=== PATIENT | male | born 1945 | race Caucasian/White ===

== ENCOUNTER 2016-10-17 16:11 | Emergency (ER) | payer MEDICARE, OTHER ==
[~2016-10-17] VITALS: Ht 172.7 cm; Wt 81.8 kg
[~2016-10-17 16:11] MED LIST: AMLO5TAB2 PO; ASPI-973 PO; ATOR40TA69 PO; CARV12.5 PO; CLOP75TA3 PO; GLUC500C11 PO; HYDR-3090 PO; ISOS60TA2 PO; LISI1TAB7 PO; NITR0.4T SL; NPH,100V10 SUBQ
[2016-10-17 16:37] VITALS: BP 191/92; PULSE 80; RESP 22; O2SAT 95
[2016-10-17] MEDS ORDERED: 0.9% Sodium Chloride 1,000 ML IV ONE (17:42)
[2016-10-17] MEDS ORDERED: Ondansetron 2 mg/mL 2 mL Inj IVPUSH ONE (17:45)
--- NOTE | 2016-10-17 17:49 | ED.REPORT ---
HPI-Back Pain 40 and Over Date of Service Oct 17, 2016 ED Provider: Jefe Sanchez PA-C Osorio is a 71-year-old male with chief complaint of right flank pain. He states that he first noticed it approximately 4 days ago, when he thought it was "normal" low back pain. His been worsening since then. He now complains of nausea and vomiting as well as urinary symptoms including frequency, urgency , dribbling and an episode of incontinence. 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 He admits to episodes of night sweats. Denies numbness, tingling, weakness or pain in lower extremity. Denies fever, DM , HIV, organ transplant, immunosuppression, history of back surgery, surgical implants and IV drug use. Denies bowel/bladder dysfunction and saddle anesthesia. Denies bowel changes, hematuria, history of kidney stones. Nursing Notes Stated Complaint: BACK PAIN Chief Complaint: Back Pain or Injury Nursing Notes Reviewed: Yes Allergies: Coded Allergies: No Known Allergies (Verified , 10/29/15) Scheduled Amlodipine (Amlodipine) 5 Mg Tablet 5 MG PO DAILY Aspirin (Aspirin) 81 Mg Tablet 81 MG PO BID Atorvastatin Calcium (Atorvastatin Calcium) 40 Mg Tablet 40 MG PO DAILY Carvedilol (Coreg) 12.5 Mg Tablet 12.5 MG PO BID Cephalexin (Keflex) 500 Mg Capsule 500 MG PO QID Clopidogrel Bisulfate (Plavix) 75 Mg Tablet 75 MG PO DAILY Glucosamine Sulfate 2Kcl (Glucosamine Sulfate) 500 Mg Capsule 2 CAPSULE PO DAILY Isosorbide MN ER (Isosorbide MN ER) 60 Mg Tab.er.24h 60 MG PO DAILY Lisinopril / HCTZ 10-12.5 mg (Lisinopril / HCTZ 10-12.5 mg) 1 Each Tablet 1 EACH PO DAILY NPH, Human Insulin Isophane (Novolin-N U100 Insulin Vial) 100 Unit/1 Ml Vial 25 UNIT SUBQ BID Scheduled PRN Hydrocodone-Acetaminophen 5-300 mg (Hydrocodone-Acetaminophen 5-300 mg) 1 Each Tablet 1 TABLET PO TID PRN PRN For Pain Nitroglycerin SL (Nitrostat) 0.4 Mg Tab.subl 0.4 MG SL Q5MIN PRN PRN ANGINA oxyCODONE (oxyCODONE) 5 Mg Tablet 5-10 MG PO Q4H PRN PRN For Pain General Time Seen by MD: 17:28 Chief Complaint Flank pain right Sudden in Onset?: No Past Medical History Smoking History Former Smoker Review of Systems Review of Systems Note: Negative other than listed otherwise in history of present illness Physical Exam General: Well appearing, well developed, well nourished, no acute distress. Head: Atraumatic, normocephalic. Eyes: No scleral icterus or injection. No discharge. Vision grossly intact. ENT: Voice clear, hearing grossly intact. Respiratory: Regular rate and rhythm. Breath sounds present, clear to auscultation and equal bilaterally. No respiratory distress. No increased work of breathing, speaks in complete sentences. Cardiovascular: Regular rate and rhythm, without murmur, gallop or rub. No pedal edema. Gastrointestinal: Abdomen flat and non-tender without guarding or rebound. Bowel sounds normoactive. Back: Normal to inspection, mild to moderate right CVA tenderness to percussion Skin: Warm and dry. Neurological: Normal gait and otherwise grossly nonfocal Psychological: Alert and oriented. Speech appropriate, linear and logical. Behavior appropriate. Initial Vital Signs Vital Signs (First) Date Time Temp Pulse Resp B/P Pulse Ox O2 Delivery O2 Flow Rate FiO2 10/17/16 16:37 80 22 191/92 95 Room Air 10/17/16 21:34 36.7 Initial VS: Reviewed, Vital signs normal Interpretation & Diagnostics Interpretation & Diagnostics: PROCEDURE: CT KUB ([id number]) INDICATIONS: 71-year-old male with right flank pain. IMPRESSION: 1. No imaging explanation for right flank pain. 2. 3.4 cm infrarenal abdominal aortic aneurysm has slightly enlarged since 2005. 3. Small fat containing periumbilical ventral hernia as before. ADDENDUM: When compared with contrast-enhanced images from June 2006, the interval increased extent of intraluminal calcifications within the abdominal aortic aneurysm closely matches the contours of pre-existing extensive peripheral mural thrombus. As such, the intraluminal curvilinear calcifications are felt to most likely reflect chronicity of mural thrombus, rather than acute dissection. No retroperitoneal fat stranding or other abnormalities are present to suggest rupture of abdominal aortic aneurysm. Lab Results Interpretation Result Diagram: 10/17/16 1810 10/17/16 1900 Test 10/17/16 17:14 10/17/16 18:10 10/17/16 19:00 Urine Color Yellow (YELLOW) Urine Appearance Clear (CLEAR,HAZY) Urine pH 6.5 (5.0-8.0) Urine Specific [place] 1.030 (1.003-1.035) Urine Protein 300mg/dL (NEG,TRACE) Urine Glucose (UA) Negativemg/dL (NEGATIVE) Urine Ketones 15mg/dL (NEGATIVE) Urine Occult Blood Small (NEGATIVE) Urine Nitrite Negative (NEGATIVE) Urine Bilirubin Negative (NEGATIVE) Urine Urobilinogen 1.0mg/dL (NORMAL) Urine Leukocyte Esterase Negative (NEGATIVE) Urine RBC 0-2/hpf (0-2) Urine WBC 0-5/hpf (0-5) Urine Epithelial Cells None/hpf (NONE-MOD) Urine Crystals None seen (NONE SEEN) Urine Bacteria Few/hpf (NONE-FEW) Urine Hyaline Casts None/lpf (NONE) Urine Granular Casts None seen (NONE SEEN) Urine Waxy Casts None seen (NONE SEEN) Urine Red Blood Cell Casts None seen (NONE SEEN) Urine White Blood Cell Casts None seen (NONE SEEN) Urine Mucus Present (None Seen) Urine Trichomonas None seen (NONE SEEN) Urine Yeast None (NONE SEEN) Urinalysis Comment None Urine Culture Reflexed Not indicated Hold Urine Received (Received) White Blood Count 9.1th/mm3 (3.8-10.1) Red Blood Count 5.34mil/mm3 (4.40-5.80) Hemoglobin 15.2g/dL (13.8-17.2) Hematocrit 44.4% (41.0-50.0) Mean Corpuscular Volume 83.1fL (81-100) Mean Corpuscular Hemoglobin 28.5pg (27.0-35.0) Mean Corpuscular Hemoglobin Concent 34.2% (32.0-37.0) Red Cell Distribution Width 13.7% (12.3-15.4) Platelet Count 231bil/L (150-400) Neutrophils (%) (Auto) 73.1% (40-74) Lymphocytes (%) (Auto) 17.6% (14-46) Monocytes (%) (Auto) 8.2% (4-12) Eosinophils (%) (Auto) 0.8% (0-5) Basophils (%) (Auto) 0.2% (0-3) Sodium Level 137mEq/L (134-144) Potassium Level 4.1mEq/L (3.5-5.2) Chloride Level 98mEq/L (97-108) Carbon Dioxide Level 21mmol/L (18-29) Blood Urea Nitrogen 17mg/dL (8-27) Creatinine 0.90mg/dL (0.76-1.27) Estimat Glomerular Filtration Rate 89mL/min (>59) Glucose Level 167mg/dL (60-99) Calcium Level 9.4mg/dL (8.5-10.1) Total Bilirubin 0.4mg/dL (0.0-1.2) Aspartate Amino Transf (AST/SGOT) 10U/L (0-50) Alanine Aminotransferase (ALT/SGPT) 9U/L (0-44) Alkaline Phosphatase 119U/L (25-160) Total Protein 7.5g/dL (6.4-8.4) Albumin 3.6g/dL (3.4-5.0) X-Ray Chest Interpretation Chest Xray Interpretation: PROCEDURE: X-RAY CHEST, TWO VIEWS ([id number]) INDICATIONS: 71-year-old male with chronic cough and right rib pain. FINDINGS: Surgical changes and devices: None. Lungs and pleura: No pleural effusions or pneumothorax. Lungs are clear. Mediastinum: Mediastinal contours are normal. Calcified bilateral hilar lymph nodes are again noted. Heart size is normal. There is aortic atherosclerosis. Bones and chest wall: No suspicious bony abnormalities. Soft tissues appear unremarkable. IMPRESSION: No acute cardiopulmonary disease. Hilar remote granulomatous disease. Interpretation / Wet Read by: Interpret - Radiologist, Interp - P Re-Eval/Medical Decision Med Decision/Clinical Course 8-year-old male with a four-day history of right flank pain that radiates around to the anterior abdomen. Slight hematuria on urinalysis. CT KUB is negative but reveals a small AAA that was grossly elevated since previous study. Radiologist does not feel that CT angiogram was necessary. Chest x-ray does not reveal a source of pain. Labs are normal. Negative fever, negative midline spinous process tenderness, negative neurological deficit. Discussed the case with Dr. Rogers who met with and examined the patient. It remains unclear why he feels this pain but I believe we have ruled out acute disc herniation, cauda equina, infection, hematoma, trauma, pyelonephritis, cancer, dissecting AAA, nephrolithiasis. I will nephritis remains a possibility and we will treat for that with 10 days Keflex. Discharged to home with instructions for [id number] analgesia as well as supplemental oxycodone with precautions. Provided referral for follow-up care as well as emergency return precautions. Patient and his understand and agree with the plan. Re-Evaluation/Progress : Time of Eval: 20:45 Re-Evaluation/Progress Note: Discussed case with Dr. Rogers. We met with and reexamine the patient. His pain is reasonably well controlled but not gone. Dr. Rogers feels it is reasonable to perform a contrast study of the AAA noted on CT KUB Consultation : Requested Call at: 20:55 Note: Discussed case with Dr. Cabrera radiology. He feels that based on the CT KUB he does not feel that a CT abdominal angiogram is necessary to rule out aortic dissection. Discharge & Departure Impression: Primary Impression: Low back pain Chronicity: unspecified Back pain laterality: right Sciatica presence: without sciatica Qualified Code: M54.5 - Low back pain Additional Impression: Urinary tract infection Urinary tract infection type: site unspecified Hematuria presence: with hematuria Qualified Code: N39.0 - Urinary tract infection, site not specified Disposition: Home Discharge Condition All VS Reviewed: Yes Condition: Stable Patient Instructions: Urinary Tract Infection in Men (ED) Additional Instructions: Evaluation in the emergency department for right flank pain. Urinalysis reveals some slight evidence of a possible urinary tract infection, which is not perfectly explain your pain. CT scan and chest x-ray revealed no evidence of lung problems, kidney stones. He did appear to have a slight bulge in your aorta which has grown slightly in the last 9 years. We believe this is stable and is not causing your pain. While we cannot say for sure what is causing her pain, we believe we have ruled out the dangerous conditions. We think are stable and safe to be discharged home. We will treat the urinary tract infection with Keflex 500 mg to be taken 4 times a day for 10 days. The pain is best treated with 600 mg of ibuprofen (Advil, Motrin) every 6 hours , or 1000 mg of acetaminophen (Tylenol) every 6 hours. These drugs can be taken at the same time for more severe pain. I will give a prescription for oxycodone to be taken for pain not controlled by these other drugs. Please do not drive or drink alcohol within 4 hours of taking oxycodone. I will give you a referral to see Dr. Nicole for follow-up. Please contact him on Wednesday to arrange follow-up in the next week or so if your pain continues. Return to emergency department for any new or worsening symptoms including numbness between her legs, loss of bowel/bladder function, new neurological symptoms, increasing pain or fever. Referrals: Esteban Nicole DO EDSupervising Provider for APC: Robin Rogers DO Attending Statement I recommended a contrast enhanced study. Milagros Mayberry spoke with the radiologist who stated that that was unnecessary and that he was able to confidently rule out hemorrhage or dissection based on what he can see in the CT. That was my greatest concern. Mr. Bonilla does have some blood in his urine so perhaps her infection. I recommend that we treat him symptomatically as well as culture his urine and placement anabolic spending the culture. copies to: Esteban Nicole Seth PA-C Oct 17, 2016 17:49 Robin Rogers DO Oct 18, 2016 00:04
[2016-10-17] MEDS: HYDROmorphone 0.5 mg/0.5 mL iSecure Syringe IVPUSH PRN ×2 (18:14→20:30)
--- NOTE | 2016-10-17 18:14 | DRSVH ---
PROCEDURE: CT KUB ([id number]) INDICATIONS: 71-year-old male with right flank pain. TECHNIQUE: Noncontrast 5 mm thick sections acquired from the diaphragms to the symphysis. 5 mm thick coronal an d sagittal reformats were then performed. For radiation dose reduction, the following was used: aut omated exposure control, adjustment of mA and/or kV according to patient size. COMPARISON: [facility], CT, ABD/PELVIS W/CON ([facility] 07/15/2006, 11:44. FINDINGS: Image quality: Excellent. Lung bases: Lung bases are clear. Several left paraesophageal calcified lymph nodes are again noted , consistent with remote granulomatous disease. Heart size is normal. Urinary system: Both kidneys are normal in size. No kidney stones. No hydronephrosis or perinephri c fat stranding. Both ureters appear non-dilated throughout their expected courses. Bladder wall th ickness is normal; no calcified bladder stones. Other solid organs: Liver and spleen are normal in size. Gallbladder wall thickness is normal. Ortiz creas is normal in contours. No adrenal nodules. Peritoneum and bowel: Unenhanced bowel loops demonstrate normal wall thickness and caliber. The keven endix is normal in caliber. No free fluid or air. Nodes and vessels: No retroperitoneal or mesenteric adenopathy by size criteria. There is diffuse a ortoiliac atherosclerosis. 3.4 x 3.4 cm infrarenal abdominal aortic aneurysm has slightly increased in size since 2005 (3.2 x 3.1 cm), with extensive mural thrombus as before. Patient is status post i nterval bilateral renal artery stenting. Abdominal wall: Small fat containing periumbilical ventral hernia is again noted. Pelvis: Prostate gland is normal in size. No free pelvic fluid. No inguinal hernias or adenopathy. Bones: No suspicious bony lesions. No vertebral body compression fractures. There is moderate asym metric right hip joint degeneration. IMPRESSION: 1. No imaging explanation for right flank pain. 2. 3.4 cm infrarenal abdominal aortic aneurysm has slightly enlarged since 2005. 3. Small fat containing periumbilical ventral hernia as before. Dictated by: Tommy Cabrera M.D. on 10/17/2016 at 18:02 Approved by: Tommy Cabrera M.D. on 10/17/2016 at 18:12
[2016-10-17 18:31] LABS: BASOPHILS % (AUTO) 0.2 % (0-3); EOSINOPHILS % (AUTO) 0.8 % (0-5); MONOCYTES % (AUTO) 8.2 % (4-12); Mean Corpuscular Hemoglobin 28.5 pg (27.0-35.0); Mean Corpuscular Volume 83.1 fL (81-100); NEUTROPHILS % (AUTO) 73.1 % (40-74); Platelet Count 231 bil/L (150-400)
[2016-10-17 18:49] VITALS: BP 169/69; PULSE 66; RESP 16; O2SAT 99
[2016-10-17 18:55] LABS: APPEARANCE,URINE CLEAR (CLEAR,HAZY); COLOR,URINE YELLOW (YELLOW); OCCULT BLOOD,URINE SMALL (NEGATIVE); PH,URINE 6.5 (5.0-8.0)
--- NOTE | 2016-10-17 20:18 | DRSVH ---
PROCEDURE: X-RAY CHEST, TWO VIEWS ([id number]) INDICATIONS: 71-year-old male with chronic cough and right rib pain. TECHNIQUE: 2 views of the chest were acquired. COMPARISON: [facility], , CHEST 1VW (PORTABLE), 12/21/2014, 10:11. [facility], CR, ABD ACUTE SERIES, 07/14/2006, 17:36. [facility], , ABD ACUTE SERIES, 000, 18:02. FINDINGS: Surgical changes and devices: None. Lungs and pleura: No pleural effusions or pneumothorax. Lungs are clear. Mediastinum: Mediastinal contours are normal. Calcified bilateral hilar lymph nodes are again noted . Heart size is normal. There is aortic atherosclerosis. Bones and chest wall: No suspicious bony abnormalities. Soft tissues appear unremarkable. IMPRESSION: No acute cardiopulmonary disease. Hilar remote granulomatous disease. Dictated by: Tommy Cabrera M.D. on 10/17/2016 at 20:15 Approved by: Tommy Cabrera M.D. on 10/17/2016 at 20:16
[2016-10-17] MEDS ORDERED: OXYC5TAB72 PO (21:18)
[2016-10-17] MEDS ORDERED: CEPH-512 PO (21:18)
[2016-10-17 21:34] VITALS: BP 144/70; PULSE 68; RESP 15; O2SAT 98
== END 2016-10-17 21:25 | disposition home or self-care (01) ==
LOC: SED 16:11
DX: M54.5 Low back pain (principal); N39.0 Urinary tract infection, site not specified; Z79.82 Long term (current) use of aspirin; Z79.4 Long term (current) use of insulin; Z87.891 Personal history of nicotine dependence; Z98.890 Other specified postprocedural states
CPT/HCPCS: 36415; 71020; 74176; 80053; 81000; 85025; 96361; 96374; 96375; 96376; 99285; J1170; J2405; J7030